=== PATIENT | male | born 1960 ===

== ENCOUNTER 2019-11-24 07:54 | Outpatient (CLI) | payer BC ==
[2019-11-24] MEDS ORDERED: Iopamidol 370 76% 100 ML VIAL ONE (09:03)
--- NOTE | 2019-11-24 09:55 | CT ---
CT ABDOMEN AND PELVIS WITH AND WITHOUT IV CONTRAST FOLLOWING ENTEROGRAPHY PROTOCOL 11/24/2019 CLINICAL INFORMATION: Small intestinal bacterial overgrowth. Persistent loose stools. COMPARISON: None. Technique: Multiple contiguous axial CT images are obtained through the abdomen and pelvis with IV contrast. Cor onal reformatted images are provided. FINDINGS: Lower Chest: Lung bases are clear. Vessels: Vascular calcifications in the abdominal aorta and iliac arteries. The celiac, superior mese nteric, and inferior mesenteric arteries are patent. Abdomen: Portal vein:Patent Gallbladder: Within normal limits for CT imaging. Liver: within normal limits. Spleen: within normal limits. Pancreas: within normal limits. Adrenals: within normal limits. Kidneys: within normal limits. Bowel: Moderate amount retained fecal material in the ascending and transverse colon. Loops of small bowel have a normal appearance. No bowel dilatation or bowel wall thickening is seen. No abnormal areas of enhancement are seen within loops of small bowel. There is mild thickening of the montilla of t he pylorus, but this is likely related to peristalsis as opposed to pathological thickening. Appendix: The appendix is visualized and normal in caliber. Peritoneum: No ascites or free air; no fluid collection. Mesentery and Retroperitoneum: No enlarged mesenteric or retroperitoneal lymph nodes. Abdominal Wall: Tiny fat-containing umbilical hernia. Pelvis: Reproductive Organs: Prostate gland is borderline increased in size measuring 5 cm in transverse dime nsions. Bladder: within normal limits. Bones: Few sclerotic densities are seen in the left iliac bone and left femoral neck demonstrating ch aracteristics most compatible with small bone islands. Mild degenerative change are seen in the spine. No suspicious lytic or sclerotic osseous lesions are seen. IMPRESSION: 1. No acute findings in the abdomen or pelvis. 2. Loops of small bowel demonstrate normal caliber without wall thickening. 3. Moderate amount of retained fecal material in the ascending and transverse colon.
== END 2019-11-24 07:55 | disposition home or self-care (01) ==
LOC: CT 07:54
DX: R19.7 Diarrhea, unspecified (principal); R14.0 Abdominal distension (gaseous); K59.00 Constipation, unspecified
CPT/HCPCS: 74178; Q9967